=== PATIENT | female | born 1965 | race Two or more races ===

== ENCOUNTER → 2016-06-17 | Outpatient (CLI) | payer OTHER ==
--- NOTE | 2016-06-20 13:12 | MM ---
Reason for exam: screening (asymptomatic). Last mammogram was performed 1 year ago. History: Patient has history of other cancer at age 36. Benign excisional biopsy of the left breast, 1993. Physical Findings: A clinical breast exam by your physician is recommended on an annual basis and results should be correlated with mammographic findings. MG Screening Mammo w CAD Bilateral CC and MLO view(s) were taken. Prior study comparison: June 15, 2015, bilateral MG screening mammo w CAD. May 26, 2014, bilateral MG screening mammo w CAD. The breast tissue is heterogeneously dense. This may lower the sensitivity of mammography. No significant changes when compared with prior studies. ASSESSMENT: Benign, BI-RAD 2 RECOMMENDATION: Routine screening mammogram of both breasts in 1 year.
== END | disposition home or self-care (01) ==
LOC: RADMAMWWP 15:26
PROVIDERS: ATTEND Family Medicine
DX: Z12.31 Encounter for screening mammogram for malignant neoplasm of breast (principal)